=== PATIENT | female | born 1940 | race Caucasian/White ===

== ENCOUNTER 2017-11-16 07:35 | Outpatient (CLI) | payer OTHER | END 2017-11-16 07:43 | disposition home or self-care (01) | LOC: SONOGRAMA 07:35 | DX: E04.1 Nontoxic single thyroid nodule (principal) ==

== ENCOUNTER 2018-01-11 09:47 | Outpatient (CLI) | payer OTHER | END 2018-01-11 10:23 | disposition home or self-care (01) | LOC: RAD 501 09:47 | DX: M25.562 Pain in left knee (principal); M25.561 Pain in right knee; M54.2 Cervicalgia ==